=== PATIENT | female | born 1940 | race African-American/Black ===

== ENCOUNTER 2017-03-24 19:25 | Emergency (ER) | payer OTHER ==
[2017-03-24 17:20] LABS: BASOPHILS 0.8 %; BASOPHILS ABSOLUTE 0.03 10/3/uL (0.0-0.16); EOSINOPHILS 5.5 %; EOSINOPHILS ABSOLUTE 0.21 10/3/uL (0.0-0.53); HEMOGLOBIN 11.8 g/dL (12.0-16.0); IMMATURE GRANULOCYTES 0.3 %; IMMATURE GRANULOCYTES ABSOLUTE 0.01 10/3/uL (0.0-0.11); LYMPHOCYTES 43.5 %; LYMPHOCYTES ABSOLUTE 1.67 10/3/uL (0.67-4.30); MEAN CORPUS HGB CONC 34.2 g/dL (32.0-36.0); MEAN CORPUSCULAR HEMOGLOB 31.6 pg (26.0-34.0); MEAN CORPUSCULAR VOLUME 92.5 fL (80-100); MEAN PLATELET VOLUME 9.6 fL (9.2-13.0); MONOCYTES 11.7 %; MONOCYTES ABSOLUTE 0.45 10/3/uL (0.21-1.20); NEUTROPHILS 38.2 %; NEUTROPHILS ABSOLUTE 1.47 10/3/uL (2.02-8.40); PLATELET COUNT 200 10/3/uL (150-400); RBC DISTRIBUTION WIDTH 13.3 % (12.0-16.0); RED CELL COUNT 3.73 10/6/uL (4.0-5.6); WHITE BLOOD CELLS 3.8 10/3/uL (4.5-10.5)
[2017-03-24 17:21] LABS: HEMATOCRIT 34.5 % (36.0-48.0); MANUAL DIFF NO %
[2017-03-24 17:27] LABS: PARTIAL THROMBO TIME 30.2 SEC (22.5-37.2); PROTIME (NOT ORD) 13.4 SEC (12.0-14.5)
[2017-03-24 17:37] LABS: BUN (BLOOD UREA NITROGEN) 19 MG/DL (6-23); CHEST PAIN PROFILE TAT 0 Hrs 23 Mins; CHLORIDE, SERUM 103 MMOL/L (96-112); CO2 (CARBON DIOXIDE) 30 MMOL/L (24-34); CREATININE 1.25 MG/DL (0.55-1.02); GFR AFRICAN AMERICAN 49 ML/MIN (>=60); GFR NON AFRICAN AMERICAN 42 ML/MIN (>=60); GLUCOSE, SERUM 150 MG/DL (60-99); POTASSIUM, SERUM 4.2 MMOL/L (3.5-5.3); SODIUM, SERUM 136 MMOL/L (135-148); TROPONIN I <0.02 NG/ML (<0.05)
[2017-03-24 17:38] LABS: CALCIUM, SERUM 9.5 MG/DL (8.5-10.4)
[~2017-03-24 19:25] MED LIST: ADDERXR25 PO; ADVAIR100 INH; AMARYL4 PO; AMBIEN CR12.5 MG PO; AMOXIL500 MG PO; ASA5GR PO; ATEN25 PO; CELEBREX1 PO; CELEBREX2 PO; CENTRUM TAB1 TAB PO; CLORTIMAZOLE EX; COMBIVENT INH; COMBIVENT INHAL15 GM INH; COMBIVENT RESPIM4 GM INH; DCN100 PO; DETROLLA4 PO; DEXTROAMPHET10 MG OR; DURA25 TOP; FLEX PO; FLORASTOR250 MG PO; HCTZ25B PO; HYDROCHLOROT25 MG PO; KLOR-CON 1010 MEQ PO; LEVBID PO; LIOR10 PO; LUNESTA3 MG PO; M-END DM OR; M-END DMX LIQU473 ML PO; M-END MAX D LI473 ML PO; MAGIC MOUTHWASH; MOBIC15 MG PO; MOBIC7.5 PO; MSCONTIN PO; MULTIVIT/MIN PO; NASACORTAQ NAS; NASONEX NAS; NEUR100 PO; NOR25 PO; OXYCOD PO; PCET PO; PERCOCET1 TA2 PO; PR25 PO; PRILO PO; PROZ10 PO; PROZAC10 M1 OR; REG PO; SINGULAIR1 PO; SURFAK PO; VESICARE5 PO; XYZAL5 MG PO; ZOFRAN4 PO; [UNRECOGNIZED DRUG - OTHER] OR; [UNRECOGNIZED DRUG - OTHER] PO
== END 2017-03-24 20:54 | disposition home or self-care (01) ==
LOC: ER 19:25
PROVIDERS: Emergency Medicine
DX: R06.02 Shortness of breath (principal); M79.604 Pain in right leg; J40 Bronchitis, not specified as acute or chronic; R09.1 Pleurisy; I10 Essential (primary) hypertension; Z88.6 Allergy status to analgesic agent; Z88.8 Allergy status to other drugs, medicaments and biological substances; Z79.899 Other long term (current) drug therapy; Z79.82 Long term (current) use of aspirin
CPT/HCPCS: 71020; 71275; 80048; 83735; 83880; 84484; 85025; 85379; 85610; 85730; 93005; 93971; 94640; 96374; 99285; J2930; Q9967